=== PATIENT | male | born 1980 | race Caucasian/White ===

== ENCOUNTER 2021-01-05 00:48 | Emergency (ER) | payer OTHER ==
[2021-01-05] MEDS ORDERED: KETOROLAC 30 MG/ML VIAL IM STA (01:39)
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
[2021-01-05] MEDS ORDERED: oxyCODONE 5 MG TABLET PO STA (02:26)
[2021-01-05] MEDS ORDERED: ACETAMINOPHEN 325 MG TABLET PO STA (02:27)
[2021-01-05 03:21] VITALS: BP 147/90
[2021-01-05] MEDS ORDERED: oxyCODONE/ACET 5/325 Prepack 4 PO STA (03:41)
--- NOTE | 2021-01-05 08:52 | XRAY Report ---
PROCEDURE: Chest 1 View X-Ray INDICATIONS: R clavicle deformity TECHNIQUE: One view of the chest was acquired. COMPARISON: Correlation is made with the accompanying shoulder radiographs, 01/05/2021 FINDINGS: Surgical changes and devices: Plate and screw fixation is seen of the left clavicle. Lungs and pleura: No pleural effusions or pneumothorax. Lungs are clear. Mediastinum: Mediastinal contours appear normal. Heart size is normal. Bones and chest wall: There is a comminuted, moderately displaced fracture of the right midclavicle. Overlying soft tissues appear unremarkable. IMPRESSION: Comminuted, moderately displaced fracture seen of the right midclavicle. Clear lungs. Left clavicle postoperative change. Note: No significant discrepancy from the preliminary report. Reviewed by: Martin Jorge MD on 01/05/2021 7:51 AM PATRICA Approved by: Martin Jorge MD on 01/05/2021 7:51 AM PATRICA Station ID: [id number]
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
== END 2021-01-05 04:00 | disposition home or self-care (01) ==
LOC: ED 00:48
DX: S42.001A Fracture of unspecified part of right clavicle, initial encounter for closed fracture (principal); S80.211A Abrasion, right knee, initial encounter; V20.4XXA Motorcycle driver injured in collision with pedestrian or animal in traffic accident, initial encounter; Y92.410 Unspecified street and highway as the place of occurrence of the external cause
CPT/HCPCS: 71045; 73030; 96372; 99283; 99284; A9270

== ENCOUNTER 2022-11-12 12:05 | Outpatient (CLI) | payer BC ==
[2022-11-12 12:19] LABS: BASOPHILS % (AUTO) 0.5 %; EOSINOPHILS # (AUTO) 0.1 10^3/uL (0.0-0.7); EOSINOPHILS % (AUTO) 1.7 %; HCT - HEMATOCRIT 42.7 % (42.0-52.0); HGB - HEMOGLOBIN 14.5 g/dL (14.0-18.0); LYMPHOCYTES # (AUTO) 2.3 10^3/uL (1.5-3.5); LYMPHOCYTES % (AUTO) 37.7 %; MEAN CORPUSCULAR HEMOGLOBIN 30.1 pg (27.0-31.0); MEAN CORPUSCULAR VOLUME 88.8 fL (80.0-94.0); MEAN PLATELET VOLUME 10.4 fL (7.4-11.4); MONOCYTES # (AUTO) 0.5 10^3/uL (0.0-1.0); MONOCYTES % (AUTO) 8.7 %; NEUTROPHILS # (AUTO) 3.1 10^3/uL (1.5-6.6); NEUTROPHILS % (AUTO) 51.1 %; PLT - PLATELET COUNT 244 10^3/uL (130-450); RED BLOOD COUNT 4.81 10^6/uL (4.70-6.10); RED CELL DISTRIBUTION WIDTH 12.6 % (12.0-15.0)
[2022-11-12 12:48] LABS: ALBUMIN 4.3 g/dL (3.2-5.5); ALBUMIN/GLOBULIN RATIO 1.3 (1.0-2.2); BILIRUBIN,TOTAL 0.4 mg/dL (0.2-1.0); CALCIUM 9.2 mg/dL (8.5-10.3); POTASSIUM 4.1 mmol/L (3.5-5.0); TOTAL PROTEIN 7.5 g/dL (6.7-8.2)
[2022-11-12 13:03] LABS: FOLATE 13.65 ng/mL (5.90 - >24.8)
== END 2022-11-12 12:06 | disposition home or self-care (01) ==
LOC: LAB 12:05
PROVIDERS: ATTEND Nurse Practitioner Family
DX: D64.9 Anemia, unspecified (principal); R94.4 Abnormal results of kidney function studies
CPT/HCPCS: 36415; 80053; 82607; 82728; 82746; 83540; 84466; 85025

== ENCOUNTER 2023-06-15 12:48 | Outpatient (CLI) | payer BC ==
[2023-06-15 13:16] LABS: BASOPHILS % (AUTO) 0.5 %; EOSINOPHILS # (AUTO) 0.1 10^3/uL (0.0-0.7); HCT - HEMATOCRIT 40.4 % (42.0-52.0); HGB - HEMOGLOBIN 13.1 g/dL (14.0-18.0); LYMPHOCYTES # (AUTO) 1.6 10^3/uL (1.5-3.5); LYMPHOCYTES % (AUTO) 26.1 %; MEAN CORPUSCULAR HEMOGLOBIN 29.9 pg (27.0-31.0); MEAN CORPUSCULAR HGB CONC 32.4 g/dL (32.0-36.0); MEAN CORPUSCULAR VOLUME 92.2 fL (80.0-94.0); MEAN PLATELET VOLUME 10.5 fL (7.4-11.4); MONOCYTES # (AUTO) 0.6 10^3/uL (0.0-1.0); MONOCYTES % (AUTO) 9.5 %; NEUTROPHILS # (AUTO) 3.8 10^3/uL (1.5-6.6); NEUTROPHILS % (AUTO) 61.7 %; PLT - PLATELET COUNT 265 10^3/uL (130-450); RED BLOOD COUNT 4.38 10^6/uL (4.70-6.10); RED CELL DISTRIBUTION WIDTH 13.2 % (12.0-15.0); WHITE BLOOD COUNT 6.1 x10^3/uL (4.8-10.8)
[2023-06-15 13:30] LABS: % IRON SATURATION 7 % (20-50); ALBUMIN 4.2 g/dL (3.2-5.5); ALBUMIN/GLOBULIN RATIO 1.4 (1.0-2.2); ALKALINE PHOSPHATASE 60 IU/L (42-121); ALT ALANINE AMINOTRANSFERASE 21 IU/L (10-60); AST ASPARTATE AMINOTRANSFERASE 11 IU/L (10-42); BILIRUBIN,TOTAL 0.4 mg/dL (0.2-1.0); BUN - BLOOD UREA NITROGEN 19 mg/dL (6-20); CALCIUM 9.2 mg/dL (8.5-10.3); CARBON DIOXIDE - CO2 27 mmol/L (21-32); CHLORIDE 106 mmol/L (101-111); CHOL/HDL RATIO 3.3 (<5.0); CHOLESTEROL 181 mg/dL; CREATININE 1.2 mg/dL (0.6-1.3); GFR - MDRD 66 (>89); GLUCOSE 102 mg/dL (74-104); HDL CHOLESTEROL 55 mg/dL; IRON 27 ug/dL (50-212); LDL CHOLESTEROL,CALCULATED 94 mg/dL; LDL/HDL RATIO 1.7 (<3.6); POTASSIUM 3.8 mmol/L (3.5-4.5); SODIUM 139 mmol/L (135-145); TOTAL IRON BINDING CAPACITY 365 ug/dL (250-450); TOTAL PROTEIN 7.3 g/dL (6.4-8.9); TRANSFERRIN 261 mg/dL (203-362); TRIGLYCERIDES 162 mg/dL (48-352); VLDL CHOLESTEROL 32 mg/dL
[2023-06-15 13:51] LABS: FERRITIN 41.1 ng/mL (23.9-336.2)
--- NOTE | 2023-06-15 16:08 | XRAY Report ---
PROCEDURE: Femur 2+V RT INDICATIONS: PAIN IN RIGHT LEG TECHNIQUE: 2 views of the femur were acquired. COMPARISON: None. FINDINGS: Bones: No fractures or dislocations. No suspicious bony lesions. Soft tissues: No suspicious soft tissue calcifications or masses. IMPRESSION: No acute bony abnormality. If there is continued pain with conservative management, consider further evaluation with cross-secti onal imaging such as CT or MRI. Reviewed by: Cony Chavez MD on 06/15/2023 4:07 PM PST Approved by: Cony Chavez MD on 06/15/2023 4:07 PM PST Station ID: [id number]
--- NOTE | 2023-06-15 16:17 | XRAY Report ---
PROCEDURE: Hip w/Pelvis 2-3V RT INDICATIONS: HIP PAIN TECHNIQUE: 2 views of the hip were acquired. COMPARISON: None. FINDINGS: Bones: No fractures or dislocations. No suspicious bony lesions. Soft tissues: No suspicious soft tissue calcifications or masses. IMPRESSION: No acute bony abnormality. If pain persists with conservative management, consider further evaluation with cross-sectional imaging such as CT or MRI. Reviewed by: Cony Chavez MD on 06/15/2023 4:16 PM PST Approved by: Cony Chavez MD on 06/15/2023 4:16 PM PST Station ID: [id number]
[2023-06-15 17:48] LABS: CHLAMYDIA TRACHOMATIS DNA NEGATIVE (NEGATIVE); NEISSERIA GONORRHOEAE DNA NEGATIVE (NEGATIVE); TRICHOMONAS VAGINALIS DNA NEGATIVE (NEGATIVE)
[2023-06-16 02:08] LABS: HCV AB Non Reactive (Non Reactive); HIV SCREEN 4TH GENERATION Non Reactive (Non Reactive)
[2023-06-16 04:09] LABS: HBsAG SCREEN Negative (Negative); HEPATITIS B SURFACE AB QUAL Non Reactive (.)
[2023-06-16 06:10] LABS: RPR Non Reactive (Non Reactive)
== END 2023-06-15 12:49 | disposition home or self-care (01) ==
LOC: LAB 12:48
PROVIDERS: ATTEND Nurse Practitioner Family
DX: D64.9 Anemia, unspecified (principal); Z11.59 Encounter for screening for other viral diseases; Z11.3 Encounter for screening for infections with a predominantly sexual mode of transmission; E78.5 Hyperlipidemia, unspecified
CPT/HCPCS: 36415; 80053; 80061; 82607; 82728; 82746; 83540; 83721; 84466; 85025; 86592; 86704; 86706; 86803; 87340; 87389; 87491; 87591; 87661

== ENCOUNTER 2023-12-11 08:00 | Outpatient (CLI) | payer BC ==
--- NOTE | 2023-12-12 19:34 | XRAY Report ---
PROCEDURE: Knee 3V RT INDICATIONS: RIGHT KNEE SPRAIN TECHNIQUE: 3 views of the knee was obtained. COMPARISON: None FINDINGS: Bones: No fractures or dislocations. No suspicious bony lesions. Medial compartmental joint space n arrowing is moderate. No marginal osteophyte. Soft tissues: Small knee joint effusion. No suspicious soft tissue calcifications or masses. IMPRESSION: New compartment osteoarthritis with small joint effusion Reviewed by: Wally Cole MD on 12/12/2023 6:33 PM AKDT Approved by: Wally Cole MD on 12/12/2023 6:33 PM AKDT Station ID: [id number]
== END 2023-12-11 23:59 | disposition home or self-care (01) ==
LOC: DI.S 08:00
PROVIDERS: ATTEND Emergency Medicine
DX: S83.421A Sprain of lateral collateral ligament of right knee, initial encounter (principal); M17.11 Unilateral primary osteoarthritis, right knee; M25.461 Effusion, right knee